=== PATIENT | female | born 1955 | race Caucasian/White ===

== ENCOUNTER 2017-12-21 21:59 | Emergency (ER) | payer OTHER ==
[~2017-12-21] VITALS: Ht 175.3 cm; Wt 160.6 kg
[~2017-12-21 21:59] MED LIST: ACCUNEB SO1.25 MG/1 INH; AZITHROMYCIN 2250 MG PO; BENTYL 20 MG TA20 M1 PO; CEFPODOXIME PR200 M1 PO; CHANTIX0.5 MG PO; CODEINE-GUAIFE120 ML PO; FLEXERIL PO; FLONASE 0.05%50 MCG NASAL; HYDROCODONE-APA1 TA1 PO; LEVOFLOXACIN750 MG PO; MOBIC15 MG PO; MUCINEX TA600 MG/TA2; MUCINEX TA600 MG/TA2 PO; NORCO 5-325 TA1 EACH PO; OXYBUTYNIN 5 MG5 M2 PO; PANTOPRAZOLE SO40 M1 PO; PREDNISONE 10 M10 MG PO; PREDNISONE 20 M20 MG PO; PREDNISONE 5 MG5 M1; PROTONIX40 M1 PO; ROBAXIN 750 MG750 M1 PO; SINGULAIR 10 MG10 M1 PO
[2017-12-21 22:45] LABS: ABSOLUTE BASOPHILS 0.1 thou/uL (0.0-0.2); ABSOLUTE EOSINOPHILS 0.2 thou/uL (0.0-0.7); ABSOLUTE LYMPHOCYTES 1.9 thou/uL (0.8-5.3); ABSOLUTE MONOCYTES 0.9 thou/uL (0.0-1.2); ABSOLUTE NEUTROPHILS 5.1 thou/uL (1.6-8.1); HEMATOCRIT 42.1 % (37.0-47.0); HEMOGLOBIN 13.8 gm/dL (12.0-15.0); LYMPHOCYTES 22.9 %; MCH 29.7 pg (26.0-34.0); MCHC 32.7 g/dL (28.0-37.0); MCV 90.7 fL (80.0-100.0); MONOCYTES 11.4 %; MPV 8.3 fl. (7.2-11.1); NUCLEATED RBCS 0 /100WBC; PLATELET COUNT* 212 thou/uL (150-400); POLYS 62.7 %; RBC 4.64 mil/uL (4.20-5.00); RDW-CV 15.6 % (10.5-14.5); WBC 8.2 thou/uL (4.0-11.0)
[2017-12-21 23:33] LABS: CALCIUM 8.6 mg/dL (8.5-10.1); CREATININE 0.8 mg/dL (0.6-1.3); POTASSIUM 4.4 mmol/L (3.5-5.1)
[2017-12-21 23:43] LABS: ALBUMIN 3.1 g/dL (3.4-5.0); TOTAL BILIRUBIN 0.2 mg/dL (<0.1-1.0); TOTAL PROTEIN 6.8 g/dL (6.4-8.2)
[2017-12-22] MEDS ORDERED: PREDNISONE50 MG PO (01:17)
[2017-12-22] MEDS ORDERED: CARBAMAZEPINE200 M2 PO (01:17)
[2017-12-22] MEDS ORDERED: NORCO 7.5-3251 EACH PO (01:17)
[2017-12-22 02:57] VITALS: BP 135/85
--- NOTE | 2017-12-22 10:38 | EKG ---
[place] [address] ELECTROCARDIOGRAM REPORT Name: SAMUEL LOOMIS Room: [facility]#: [id number] Admission: 12/21/17 Attend Phys: Discharge: 12/22/17 Date of : 53 Report #: [id number] THIS REPORT FOR: //name// [facility] ED Test Date: 2017-12-21 Test Time: 23:03:38 Pat Name: SAMUEL LOOMIS Department: Room: Gender: F Quality Assurance Assistant: EMIL : 1955 Requested By: Farrah Crisostomo Order Number: [id number] MD: Daniele Martinez Measurements Intervals [place] Rate: 63 P: 81 [place]: 188 QRS: 47 QRSD: 101 T: 66 QT: 430 QTc: 441 Interpretive Statements Sinus rhythm Compared to ECG 10/06/2016 00:18:05 No significant changes Electronically Signed On 12-22-2017 10:37:55 CDT by Daniele Martinez [email or web address] <ELECTRONICALLY SIGNED> By: Daniele Martinez MD, [facility] 12/22/17 1037 2303 2303 Daniele Martinez MD, FACC /EPI
== END 2017-12-22 02:00 | disposition home or self-care (01) ==
LOC: M.ERS 21:59
PROVIDERS: Nurse Practitioner
DX: R51 Headache (principal); J44.9 Chronic obstructive pulmonary disease, unspecified; E66.01 Morbid (severe) obesity due to excess calories; M19.072 Primary osteoarthritis, left ankle and foot; M19.071 Primary osteoarthritis, right ankle and foot; M17.0 Bilateral primary osteoarthritis of knee; Z90.49 Acquired absence of other specified parts of digestive tract; Z88.0 Allergy status to penicillin; Z68.43 Body mass index [BMI] 50.0-59.9, adult; Z85.9 Personal history of malignant neoplasm, unspecified; Z88.8 Allergy status to other drugs, medicaments and biological substances

== ENCOUNTER 2019-06-16 10:08 | Inpatient (IN) | payer OTHER ==
[~2019-06-16] VITALS: Ht 175.3 cm; Wt 73.2 kg
--- NOTE | ~2019-06-16 | CON ---
[address] [address] CONSULTATION Name: SAMUEL LOOMIS Room: [address] IN M.R.#: [id number] Admission: 06/16/19 Attend Phys: Tony Velázquez MD Discharge: Date of : 53 Report #: [id number] THIS REPORT FOR: //name// cc: Tina Bartlett Anna S. DO ~ THIS REPORT FOR: //name// CC: Tony Bartlett DATE OF SERVICE: 06/18/2019 Podiatric evaluation for onychomycosis. She states the left great toenail is loose from the nail bed, she denies pain or drainage from the area. I examined her toenails, which are dystrophic and consistent with onychomycosis. No paronychia noted. I will trim the patient's toenails tomorrow as there is no paronychia, cellulitis or pain to the nails. By: 1642 0014Dchanell Vernon DPM /tanja
[~2019-06-16 10:08] MED LIST changes: +CARBAMAZEPINE200 M2 PO; +NORCO 7.5-3251 EACH PO; +PREDNISONE50 MG PO
[2019-06-16 10:14] VITALS: BP 153/86
[2019-06-16] MEDS ORDERED: PROAIR HFA8.5 GM INH (10:22)
[2019-06-16] MEDS ORDERED: FUROSEMIDE 20 M20 MG PO (10:25)
[2019-06-16] MEDS ORDERED: VITAMIN D350 MC2 PO (10:26)
[2019-06-16] MEDS ORDERED: STIOLTO RESPIMAT4 GM INH (10:27)
[2019-06-16 10:33] LABS: ABSOLUTE BASOPHILS 0.1 thou/uL (0.0-0.2); ABSOLUTE EOSINOPHILS 0.1 thou/uL (0.0-0.7); ABSOLUTE LYMPHOCYTES 1.2 thou/uL (0.8-5.3); ABSOLUTE MONOCYTES 0.7 thou/uL (0.0-1.2); ABSOLUTE NEUTROPHILS 5.5 thou/uL (1.6-8.1); BASOPHILS 0.9 %; EOSINOPHILS 1.7 %; HEMATOCRIT 45.4 % (37.0-47.0); HEMOGLOBIN 15.1 gm/dL (12.0-15.0); LYMPHOCYTES 16.4 %; MCH 29.2 pg (26.0-34.0); MCHC 33.3 g/dL (28.0-37.0); MCV 87.5 fL (80.0-100.0); MONOCYTES 9.1 %; MPV 8.4 fl. (7.2-11.1); NUCLEATED RBCS 0 /100WBC; PLATELET COUNT* 181 thou/uL (150-400); POLYS 71.9 %; RBC 5.19 mil/uL (4.20-5.00); RDW-CV 15.4 % (10.5-14.5); WBC 7.6 thou/uL (4.0-11.0)
[2019-06-16 10:40] LABS: CALCIUM 8.4 mg/dL (8.5-10.1); CREATININE 0.9 mg/dL (0.6-1.3); POTASSIUM 3.9 mmol/L (3.5-5.1)
[2019-06-16 10:44] LABS: APTT 22.9 Seconds (25.0-31.3); PROTIME 10.7 Seconds (9.20-11.50)
[2019-06-16 10:45] LABS: ALBUMIN 3.2 g/dL (3.4-5.0); TOTAL BILIRUBIN 0.4 mg/dL (<0.1-1.0); TOTAL PROTEIN 6.8 g/dL (6.4-8.2)
[2019-06-16 11:59] LABS: BE 2.6 mmol/L (-2 to +3); PCO2 47.3 mmHg (35.0-45.0); pH 7.395 (7.340-7.450)
[2019-06-16 12:01] LABS: PO2 43.3 mmHg (75.0-100.0)
[2019-06-16 13:51] LABS: URINE BILIRUBIN NEGATIVE (Negative); URINE BLOOD NEGATIVE (Negative); URINE CLARITY CLOUDY; URINE COLOR YELLOW; URINE GLUCOSE-RANDOM NEGATIVE (Negative); URINE KETONES TRACE (Negative); URINE LEUKOCYTES-REFLEX NEGATIVE (Negative); URINE PROTEIN 1+ (Negative); URINE UROBILINOGEN 0.2 E.U./dl (0.2-1.0)
[2019-06-16 13:57] LABS: SQUAMOUS >10 Many /LPF (0-3); URINE NITRITE-REFLEX POSITIVE (Negative)
[2019-06-16 13:58] LABS: BACTERIA-REFLEX >30 Many /HPF (None Seen); CASTS None Seen /LPF (None Seen); CRYSTALS None Seen /LPF (None Seen); MUCUS >6 Heavy strn/LPF (None Seen); URINE RBC 0-2 Rare /HPF (0-2); URINE WBC-REFLEX 6-15 Few /HPF (0-5)
[2019-06-16 14:39] VITALS: BP 162/87
[2019-06-16 16:00] VITALS: BP 161/74
--- NOTE | 2019-06-16 16:53 | EKG ---
[place] [address] ELECTROCARDIOGRAM REPORT Name: SAMUEL LOOMIS Room: [address] ADM IN .R.#: [id number] Admission: 06/16/19 Attend Phys: Tony Velázquez, Discharge: Date of : 53 Date of Service: 06/16/19 1013 Report #: [id number] THIS REPORT FOR: //name// [facility] ED Test Date: 2019-06-16 Test Time: 10:13:58 Pat Name: SAMUEL LOOMIS Department: Room: [facility] Gender: F Field Hauler: ARELIS : 1955 Requested By: Yolie Pereira Order Number: [id number] MD: Yunier Tristan Measurements Intervals [place] Rate: 81 P: 13 [place]: 189 QRS: 33 QRSD: 108 T: 29 QT: 349 QTc: 405 Interpretive Statements Sinus rhythm Probable left atrial enlargement Baseline wander in lead(s) V2 Compared to ECG 12/21/2017 23:03:38 No significant changes Electronically Signed On 06-16-2019 16:52:40 SALES TECHNICIAN by Yunier Tristan [email or web address] <ELECTRONICALLY SIGNED> By: Yunier Tristan MD, FACC 06/16/19 1652 1013 1013 Yunier Tristan MD, FAC /EPI
[2019-06-16] MEDS ORDERED: BENTYL 10 MG CA10 M1 PO (18:55)
[2019-06-16 20:00] VITALS: BP 154/78
[2019-06-17 00:04] VITALS: BP 135/58
[2019-06-17 04:35] VITALS: BP 117/69
[2019-06-17 04:59] LABS: HEMATOCRIT 44.3 % (37.0-47.0); HEMOGLOBIN 14.8 gm/dL (12.0-15.0); MCH 29.3 pg (26.0-34.0); MCHC 33.5 g/dL (28.0-37.0); MCV 87.5 fL (80.0-100.0); MPV 8.6 fl. (7.2-11.1); NUCLEATED RBCS 0 /100WBC; PLATELET COUNT* 181 thou/uL (150-400); RBC 5.06 mil/uL (4.20-5.00); RDW-CV 15.8 % (10.5-14.5); WBC 7.3 thou/uL (4.0-11.0)
[2019-06-17 05:29] LABS: CALCIUM 8.6 mg/dL (8.5-10.1); CREATININE 0.7 mg/dL (0.6-1.3); POTASSIUM 4.4 mmol/L (3.5-5.1)
[2019-06-17 06:03] LABS: ABSOLUTE LYMPHOCYTES 0.2 thou/uL (0.8-5.3); ABSOLUTE NEUTROPHILS 7.1 thou/uL (1.6-8.1); ANISOCYTOSIS 1+; PLATELET ESTIMATE ADEQUATE; POIKILOCYTOSIS 1+
[2019-06-17 07:59] VITALS: BP 111/45
--- NOTE | 2019-06-17 08:19 | NUR ---
ASSUMED PATIENT CARE AT 1900. ASSESSMENT COMPLETED CHARTED. PATIENT IS NSR ON THE MONITOR. DURING SHIFT PATIENT HAD CHEST AND BACK PAIN. EKG WAS PERFORMED, SEE CHART FOR DETAILS, VITAL SIGNS COLLECTED, SEE DOCUMENTATION FOR DETAILS, NITRO GIVEN PER EMAR, PHYSICIAN NOTIFIED, NEW ORDERS RECEIVED AND FOLLOWED, TROPONIN LABS DRAWN, SEE DOCUMENTATION FOR DETAILS. PATIENT REPORTED RELIEF FROM CHEST PAIN AFTER NITRO ADMINISTRATION AND WAS ABLE TO SLEEP THROUGH THE NIGHT. HOURLY ROUNDING IN PLACE FOR PATIENT SAFETY. CLWR.
--- NOTE | 2019-06-17 11:11 | NUR ---
Pt out of room at stress test, CM to f/u later
--- NOTE | 2019-06-17 11:42 | EKG ---
[place] [address] ELECTROCARDIOGRAM REPORT Name: SAMUEL LOOMIS Room: [address] ADM IN .R.#: [id number] Admission: 06/16/19 Attend Phys: Tony Velázquez, Discharge: Date of : 53 Date of Service: 06/17/19 0014 Report #: [id number] THIS REPORT FOR: //name// [facility] Test Date: 2019-06-17 Test Time: 00:14:01 Pat Name: SAMUEL LOOMIS Department: Room: [address] Gender: F Steward/Stewardess Third Class: YOHANA : 1955 Requested By: Tony Velázquez Order Number: [id number] Lenka MD: Yunier Tristan Measurements Intervals [place] Rate: 74 P: 78 VT: 177 QRS: 62 QRSD: 103 T: 73 QT: 386 QTc: 429 Interpretive Statements Sinus rhythm Atrial premature complex Compared to ECG 06/16/2019 10:13:58 Atrial premature complex(es) now present Electronically Signed On 06-17-2019 11:41:50 SYSTEM TRAINER by Yunier Tristan [email or web address] <ELECTRONICALLY SIGNED> By: Yunier Tristan MD, [facility] 06/17/19 1141 0014 0014 Yunier Tristan MD, [facility] /EPI
--- NOTE | 2019-06-17 11:42 | EKG ---
[place] [address] ELECTROCARDIOGRAM REPORT Name: SAMUEL LOOMIS Room: [address] ADM IN M.R.#: [id number] Admission: 06/16/19 Attend Phys: Tony Velázquez, Discharge: Date of : 53 Date of Service: 06/16/192206 Report #: [id number] THIS REPORT FOR: //name// [facility] Test Date: 2019-06-16 Test Time: 22:07:00 Pat Name: SAMUEL LOOMIS Department: Room: [address] Gender: F Bail Agent: TR : 1955 Requested By: Tony Velázquez Order Number: [id number] [place] MD: Yunier Tristan Measurements Intervals [place] Rate: 79 P: 65 [place]: 196 QRS: 30 QRSD: 89 T: 52 QT: 360 QTc: 413 Interpretive Statements Sinus rhythm Abnormal R-wave progression, early transition Compared to ECG 06/16/2019 10:13:58 No significant changes Electronically Signed On 06-17-2019 11:41:22 RECRUITMENT INTERNSHIP by Yunier Tristan [email or web address] <ELECTRONICALLY SIGNED> By: Yunier Tristan MD, FAC 06/17/19 1141 2207 06 Yunier Tristan MD, [facility] /EPI
--- NOTE | 2019-06-17 15:23 | NUR ---
Pt is A&O. Resides at home alone. Independent. Pt has a scooter that she can use if needed. No hx of HH or SNF. Supportive family. Goal is home. Following.
[2019-06-17 16:26] VITALS: BP 110/60
--- NOTE | 2019-06-17 16:54 | NUR ---
ASSUMED CARE OF PT AROUND 0730 THIS AM. REFER TO ASSESSMENT. PT COMPLETED NONSTRESS TEST THIS SHIFT. NO RESULTS AT THIS TIME. PT PULLED OUT IV ACCESS. NEW ORDER OBTAINED TO LEAVE OUT IV AT THIS TIME. ANTICIPATE DC HOME TOMORROW. NO OTHER CONCERNS AT THIS TIME. CLWR. WCTM.
[2019-06-17 20:00] VITALS: BP 124/61
[2019-06-18 00:13] VITALS: BP 151/83
[2019-06-18 04:43] VITALS: BP 132/90
[2019-06-18 08:00] VITALS: BP 132/70
--- NOTE | 2019-06-18 09:57 | NUR ---
PT UP AD ALVIN IN ROOM, PT WAS IN BATHROOM AND THEN BRUSHING DENTURES WITHOUT OXYGEN. PT SPO2 87% ON RA. PT DENIES ANY INCREASE IN SOB. ALLOWED PT TO SIT AND TRY TO RECOVER ON HER OWN, PT SPO2 STILL 87%. PT PLACED ON HER 2L NC, SPO2 SLOWLY INCREASED TO 89-90%.
[2019-06-18 11:30] LABS: ABSOLUTE LYMPHOCYTES 1.2 thou/uL (0.8-5.3); ABSOLUTE NEUTROPHILS 7.4 thou/uL (1.6-8.1); BASOPHILS 0.4 %; HEMATOCRIT 43.1 % (37.0-47.0); HEMOGLOBIN 14.1 gm/dL (12.0-15.0); LYMPHOCYTES 12.3 %; MCH 28.9 pg (26.0-34.0); MCHC 32.8 g/dL (28.0-37.0); MCV 88.2 fL (80.0-100.0); MPV 8.5 fl. (7.2-11.1); NUCLEATED RBCS 0 /100WBC; PLATELET COUNT* 180 thou/uL (150-400); POLYS 77.3 %; RBC 4.88 mil/uL (4.20-5.00); RDW-CV 15.7 % (10.5-14.5); WBC 9.6 thou/uL (4.0-11.0)
[2019-06-18 11:35] VITALS: BP 106/45
[2019-06-18 11:44] LABS: CALCIUM 8.3 mg/dL (8.5-10.1); CREATININE 0.9 mg/dL (0.6-1.3); POTASSIUM 4.4 mmol/L (3.5-5.1)
[2019-06-18 17:07] VITALS: BP 153/88
--- NOTE | 2019-06-18 18:21 | CARDNUC ---
[place] [address] CARDIAC NUCLEAR IMAGING REPORT Name: SAMUEL LOOMIS Room: [address] IN [facility]#: [id number] Admission: 06/16/19 Attend Phys: Tony Velázquez, Discharge: Date of : 53 Date of Service: 06/18/19 1820 Report #: [id number] THIS REPORT FOR: cc: Tina Bartlett,Edgard Trevizo MD [facility] ~ APPROVED REPORT Imaging Protocol: Stress Tc-99m/Rest Tc-99m 2 days Study performed: 06/17/2019 12:13:06 Indication: Chest pain Patient Location: In-Patient Room #: 200 Stress Tech: Sade Simpson Stress Nurse: Nory Murillo RN NM Tech:ARMANI Youngblood Ht: 5 ft 9 in Wt: 358 lbs BSA: 2.65 m2 BMI: 52.86 Medical History Medical History: Angina, COPD, Current Smoker, Fatigue, Obesity , Weakness. Medications: Solu-Medrol, Lasix, Hydralazine, NTG. Allergies: Penicillins, Naproxen. Cardiac Risk Factors: Age, Current Smoker, FHX of CAD, Obesity, COPD. Previous Cardiac Procedures: None Pretest Chest Pain Characteristics: No chest pain Exercise History: Sedentary Physical Disabilities: BMI. Meds Held (24 hrs): NTG. Resting Data Rest SPECT myocardial perfusion imaging was performed in supine position 30 minutes following the intravenous injection of 33.7 mCi of Tc-99m Sestamibi. Time of rest injection: 0850 Date: 06/18/2019 Administration Route: IV Administration Site: Right AC Pharmacologic Stress Pharmacologic stress test was performed by injecting Regadenoson 0.4 [place] [address] CARDIAC NUCLEAR IMAGING REPORT Name: SAMUEL LOOMIS Room: [address] IN ..#: [id number] Admission: 06/16/19 Attend Phys: Tony Velázquez, Discharge: Date of : 53 Date of Service: 06/18/19 1820 Report #: [id number] mg IV push over 10-15 seconds immediately followed by the intravenous injection of 35.6 mCi of Tc-99m Sestamibi. Time of stress injection: 1130 Date: 06/17/2019 Administration Route: IV Administration Site: Right Wrist Gated Stress SPECT was performed 40 minutes after stress injection. The images were gated to evaluate regional wall motion and calculate left ventricular ejection fraction. Prone imaging was performed. Stress Test Details Stress Test: Pharmacologic stress testing performed using 0.4 mg of regadenoson per 5 mL given IV over 10 seconds. Reason for pharmacologic stress test: BMI. HR Max Heart Rate (APMHR): 155 bpm Resting HR: 63 bpm Target HR (85% APMHR): 131 bpm Max HR Achieved: 89 bpm % of APMHR: 57 Recovery HR: 83 bpm BP Resting BP: 150/60 mmHg Max BP: 110/61 mmHg Recovery BP: 121/67 mmHg ECG Resting ECG: Sinus Rhythm Stress ECG: Sinus Rhythm ST Change: None Arrhythmia: None Recovery ECG: Sinus Rhythm Recovery ST Change: None Recovery Arrhythmia: None Clinical Reason for Termination: Completed protocol Stress Symptoms: Fatigue Exercise duration: 00 min 00 sec Exercise capacity: 1.00 METs The patient tolerated Lexiscan occasional cardiac symptoms. Nurse Comments A 64 year old female inpatient presented for a sitting Lexiscan r/t recent CP. Test well tolerated. Recovery unremarkable with PO caffeine, effective. Patient was escorted via [place] [address] CARDIAC NUCLEAR IMAGING REPORT Name: SAMUEL LOOMIS Room: [address]#: [id number] Admission: 06/16/19 Attend Phys: Tony Velázquez, Discharge: Date of : 53 Date of Service: 06/18/19 1820 Report #: [id number] Nuc Med for imaging. Patient was stable and stated she felt good at that time. Stress ECG Conclusion The baseline 12-lead EKG showed sinus rhythm without significant ST segment or T-wave abnormality. EKGs obtained during and post Lexiscan infusion showed sinus rhythm with no significant ST segment or T wave changes when compared to baseline. There were no stress-induced arrhythmias. Study Quality Study: Poor Artifact: Severe Breast artifact Study Data Post stress, the left ventricular ejection was 66%.. Perfusion Perfusion images are technically limited presumably due to patient body habitus and breast attenuation artifact. There does appear to be a moderate size moderate intensity reversible defect involving the mid to distal anterolateral wall. There is significant breast attenuation involving the majority of the anterior anterolateral wall. No other significant reversible or fixed defects are identified. Wall Motion Global LV systolic function is preserved with a lateral wall motion abnormality. Nuclear Conclusion ECG Findings: negative for ischemia Clinical Findings: negative for ischemia Nuclear Findings: positive for ischemia Exercise Capacity: not assessed Left Ventricular Function: preserved Risk Study: moderate Perfusion images suggest stress-induced ischemia involving the mid to distal anterolateral wall. Images are significantly technically limited. Global LV systolic function is preserved with a focal lateral wall motion abnormality. This is a moderate risk study. <Conclusion> The baseline 12-lead EKG showed sinus rhythm without significant ST segment or T-wave abnormality. EKGs obtained during [place] [address] CARDIAC NUCLEAR IMAGING REPORT Name: SAMUEL LOOMIS Room: [address] IN [facility]#: [id number] Admission: 06/16/19 Attend Phys: Tony Velázquez, Discharge: Date of : 53 Date of Service: 06/18/19 1820 Report #: [id number] infusion showed sinus rhythm with no significant ST segment or T wave changes when compared to baseline. There were no stress-induced arrhythmias. <ELECTRONICALLY SIGNED> By: Edgard Goldberg MD, FACC 06/18/191819 19 19 Edgard Goldberg MD, FACC /INF
[2019-06-19] VITALS: BP 151/65
[2019-06-19 03:55] VITALS: BP 113/48
[2019-06-19 08:00] VITALS: BP 106/45
--- NOTE | 2019-06-19 08:37 | NUR ---
PT A+OX4. PT FREQUENTLY GROUT WORKER LIGHT AND WALKING OUT INTO THE BO REQUESTING SNACKS. MINIMAL COMLPLIANCE WITH WEARING HEART MONITOR. SEE ASSESSMENT FOR CHARTING. CALL LIGHT IN REACH. HOURLY ROUNDING FOR SAFETY.
[2019-06-19 12:00] VITALS: BP 106/45
[2019-06-19 12:26] VITALS: BP 90/53
[2019-06-19] MEDS ORDERED: RAYOS5 MG PO (13:14)
[2019-06-19 13:16] VITALS: BP 124/73
[2019-06-19] MEDS ORDERED: PROTONIX40 M2 PO (13:16)
[2019-06-19] MEDS ORDERED: NICOTINE TRANSD21 M1 (13:17)
--- NOTE | 2019-06-19 13:34 | NUR ---
Pt discharging to home today. Ex ox completed, Pt requires o2 with activity, referral faxed to Ashley at [facility]. Awaiting tank delivery.
--- NOTE | 2019-06-19 15:30 | NUR ---
ASSUMED PT CARE AT 0730. ASSESSMENT COMPLETED CHARTED. ABLE TO MAKE NEEDS KNOWN. UP AD ALVIN IN ROOM. C/O CHRONIC BACK PAIN AND GAVE PRN PAIN MEDS PER EMAR. DISCHARGE APPROVED, GAVE PT DISCHARGE, SCRIPTS, AND MED INFO. IV AND HEART MONITOR REMOVED. O2 DELIVERED TO ROOM. PT LEFT ROOM WITHOUT LETTING US GET SOMEONE TO WALK DOWN TO HER VEHICLE AROUND 1500. NO COMMENTS, QUESTIONS, OR CONCERNS NOTED.
== END 2019-06-19 15:30 | disposition home or self-care (01) | DRG 189 ==
LOC: M.ERS 10:08 → M.TBA-ER 13:27 → M.2W 13:27
PROVIDERS: Internal Medicine; Personal Emergency Response Attendant; ADMIT Internal Medicine
DX: J96.21 Acute and chronic respiratory failure with hypoxia (principal); J44.1 Chronic obstructive pulmonary disease with (acute) exacerbation; N39.0 Urinary tract infection, site not specified; L03.032 Cellulitis of left toe; B35.3 Tinea pedis; E11.9 Type 2 diabetes mellitus without complications; I10 Essential (primary) hypertension; G56.00 Carpal tunnel syndrome, unspecified upper limb; F17.210 Nicotine dependence, cigarettes, uncomplicated; M17.0 Bilateral primary osteoarthritis of knee; M19.072 Primary osteoarthritis, left ankle and foot; E66.01 Morbid (severe) obesity due to excess calories; M19.071 Primary osteoarthritis, right ankle and foot; Z90.49 Acquired absence of other specified parts of digestive tract; Z68.23 Body mass index [BMI] 23.0-23.9, adult; Z79.899 Other long term (current) drug therapy; Z79.51 Long term (current) use of inhaled steroids; Z88.0 Allergy status to penicillin; Z88.8 Allergy status to other drugs, medicaments and biological substances; Z83.6 Family history of other diseases of the respiratory system; Z85.828 Personal history of other malignant neoplasm of skin; Z71.51 Drug abuse counseling and surveillance of drug abuser